=== PATIENT | female | born 1980 | race Hispanic/Latino ===

== ENCOUNTER 2016-04-18 20:13 | Emergency (ER) | payer SELFPAY ==
[~2016-04-18] VITALS: Ht 160 cm; Wt 118.2 kg
[~2016-04-18 20:13] MED LIST: LABE100T PO
[2016-04-18 20:21] VITALS: BP 122/67; PULSE 100; RESP 16; O2SAT 99
--- NOTE | 2016-04-18 21:23 | ED.REPORT ---
HPI-Rash / Abscess Date of Service Apr 18, 2016 ED Provider: Kofi Schulte MD Patient is a 35 year old female who presents to the ED complaining of a boil on the back of her R thigh onset 5 days ago. She noticed a pimple in the back of her R lower extremity and reports that over time it has gotten bigger and has been draining pus. Epsom soaks not helping. She denies fever, chills, or any other symptoms. Nursing Notes Stated Complaint: BOIL ON BACK OF RIGHT THIGH Chief Complaint: Skin Rash/Abscess Nursing Notes Reviewed: Yes Allergies: Coded Allergies: No Known Allergies (Unverified Allergy, Unknown, 04/18/16) Scheduled Labetalol-Expunged Drug, Do Not Renew! (Normodyne-Expunged Drug, Do Not Renew!) 100 Mg Tablet 200 MG PO BID General Time Seen by MD: 21:23 Chief Complaint Boil Hx Obtained From: Patient Arrived By: Walk-in Onset Occurred: 5 days ago Symptom Duration: Since onset Past Medical History Past Medical History Healthy Denies: Diabetes mellitus Past Surgical History Denies Smoking History Unknown if Ever Smoker Ambulatory Status Independent Review of Systems Constitutional: Denies: Chills, Fever Skin: Reports Rash (Abscess ) Complete sys rev & neg: except as marked. Physical Exam Initial Vital Signs Vital Signs (First) Date Time Temp Pulse Resp B/P Pulse Ox O2 Delivery O2 Flow Rate FiO2 04/18/16 20:21 36.8 100 16 122/67 99 Room Air Initial VS: Reviewed Head / Eyes: Atraumatic, Normocephalic Neck: Full range of motion Respiratory: No respiratory distress Abdomen / GI: Soft, Non-tender Neurologic: Alert, Oriented, Nonfocal Psychiatric: Mood/affect normal, Behavior normal, Normal thought content General/Constitutional: Awake, Alert, Well appearing, Well developed Abscess Notes: 2 cm abscess, pointed and opens but fluctuance present Abscess #1 Location/Condition: Positive: Location (Posterior R thigh ) Procedures Incision & Drainage Abscess Time: 22:18 Procedure Performed by: ED physician Consent / Setup / Site Prep: Informed consent provided, Consent from patient , Time-out performed, Hand hygiene observed Location of Abscess: R posterior thigh Skin Preparation Agent: Hibiclens - Chlorhexidine Local Anesthesia: Lidocaine 1% Post-Procedure / Complications: Dressing applied, No complications, Condition improved, Tolerated procedure well, Patient stable Re-Eval/Medical Decision Re-Evaluation/Progress : Time of Eval: 22:29 Patient Status: Condition improved Re-Evaluation/Progress Note: I&D performed. Patient tolerated well and is improved. Discussed plan for discharge. Patient understands and agrees with plan. All questions addressed at this time. Counseled Regarding: Diagnosis, Need for follow-up, When/why to return to ED Discharge & Departure Impression: Primary Impression: Abscess Disposition: Home Discharge Condition All VS Reviewed: Yes Condition: Stable Additional Instructions: In the ED tonight, we opened a small skin abscess in the back of your R thigh. We do not expect that there will be any further treatment needed. Keep wound covered, wash with soap and water daily. return for increasing swelling, redness or pain. follow up with primary care in 4-5 days if this has not resolved. Referrals: Amber Claros MD (PCP) Scribe Attestation Portions of this note were transcribed by Edilma Mckenzie. I, Dr. Schulte personally performed the history, physical exam and medical decision-making; I reviewed and confirmed the accuracy of the information in the transcribed note. Signed by: Edilma Mckenzie 04/18/16, 2230 copies to: Amber Claros MD, Donald L MD Apr 18, 2016 21:23 EDILMA MCKENZIE Apr 18, 2016 21:38
== END 2016-04-18 22:34 | disposition home or self-care (01) ==
LOC: SED 20:13
DX: L02.415 Cutaneous abscess of right lower limb (principal)